=== PATIENT | female | born 1995 | race Caucasian/White ===

== ENCOUNTER 2017-03-20 09:52 | Emergency (ER) | payer BC, OTHER ==
--- NOTE | 2017-03-20 10:23 | ER Document Report ---
ED Respiratory Problem - General Chief Complaint: Cold Symptoms Stated Complaint: FLU-LIKE SYMPTOMS Mode of Arrival: Ambulatory Information source: Patient TRAVEL OUTSIDE OF THE [place] IN LAST 30 DAYS: No - HPI Patient complains to provider of: Cough Onset: Last week Notes: Patient also complains of URI symptoms that started approximately 5 days ago. States she has nasal congestion, cough, sore throat. She states that she feels like her symptoms have gotten worse, she called her primary care physician who did not have appointments today and directed her to the emergency department for evaluation. She has no fever. She denies any chest pain or shortness of breath. She denies any nausea vomiting or diarrhea. No neck stiffness. No rash. She denies any blurred vision. She denies any known medical problems. She didn't taking DayQuil and NyQuil without relief of her symptoms. He has any other complaints at this time. - Related Data Allergies/Adverse Reactions: Penicillins Allergy (Verified 03/20/17 09:58) Past Medical History - Social History Smoking Status: Unknown if Ever Smoked Family History: Reviewed & Not Pertinent Patient has suicidal ideation: No Patient has homicidal ideation: No Renal/ Medical History: Denies: Hx Peritoneal Dialysis Psychiatric Medical History: Reports: Hx Depression Surgical Hx: Negative Review of Systems - Review of Systems -: Yes All other systems reviewed and negative Physical Exam - Vital signs Vitals: Temp Pulse Resp BP Pulse Ox 99.1 F 100 16 148/88 H 100 03/20/17 09:58 03/20/17 09:58 03/20/17 09:58 03/20/17 09:58 03/20/17 09:58 - Notes Notes: GENERAL: alert, cooperative, nontoxic, no distress. HEAD: normocephalic, atraumatic EYES: conjunctiva pink without discharge, no external redness or swelling. EARS: no external swelling, no external redness, no mastoid redness, swelling, tenderness. Ear canals are clear without swelling or drainage. TMs pearly bergeron , no redness, no bulging, normal landmarks, no perforation. NOSE: atraumatic, no external swelling. clear rhinorrhea noted. MOUTH/THROAT: mucous membranes moist and pink, posterior pharynx without erythema, swelling, exudate. No trismus or drooling. NECK: soft, supple, full range of motion, no meningismus. CHEST: no distress, lungs clear and equal throughout. No wheezing, rales, rhonchi. CARDIAC: regular rate and rhythm, no murmur, normal capillary refill, normal pulses. No peripheral edema noted. BACK: full range of motion, no CVA tenderness. EXTREMITIES: full range of motion of all extremities. No redness, no swelling. NEURO: alert and oriented -3, no focal deficits, full range of motion of all extremities. PYSCH: appropriate mood, affect. Patient is cooperative. SKIN: pink, warm, dry, no rash. Course - Re-evaluation Re-evalutation: 03/20/17 11:46 Patient is nontoxic-appearing stable vitals. She's had URI symptoms for less than a week now like she was getting worse. She has a completely benign exam. Strep was negative. Chest x-ray showed no pneumonia. The patient will be discharged home with NSAIDs, Tessalon, Flonase. Follow up with her doctor if not better in one week, sooner for increased pain, difficulty breathing, high fevers, or any further concerns. The patient is noted to have elevated blood pressure during today's emergency department visit. The patient was informed of this finding. The patient was instructed that this may be related to pre-hypertension and requires further evaluation with a primary care provider. The patient has no hypertensive symptoms at this time. The patient's emergency department workup and current diagnosis were explained to the patient and or family. Follow-up instructions were provided. Medications if prescribed were discussed. Instructions for when to return to the emergency department including specific worrisome symptoms were discussed with the patient and/or family. - Vital Signs Vital signs: Temp Pulse Resp BP Pulse Ox 99.1 F 100 16 148/88 H 100 03/20/17 09:58 03/20/17 09:58 03/20/17 09:58 03/20/17 09:58 03/20/17 09:58 Discharge - Discharge Clinical Impression: Upper respiratory infection Qualifiers: URI type: unspecified URI Qualified Code(s): J06.9 - Acute upper respiratory infection, unspecified Condition: Stable Disposition: HOME, SELF-CARE Instructions: Upper Respiratory Illness ([facility]) Additional Instructions: Take medications as prescribed. Drink plenty of fluids. Follow up with your doctor if not better in one week, sooner for difficulty breathing, high fever, or any further concerns. Your blood pressure was elevated during today's visit. Have this rechecked with your doctor. Prescriptions: Benzonatate [Tessalon Perle 100 mg Capsule] 100 mg PO Q8HP PRN #20 cap PRN Reason: Fluticasone Propionate [Flonase Nasal Lignite 50 Mcg/Lignite 16 gm] 2 sprays NASL Q12 #1 inhaler Naproxen 500 mg PO BID #20 tablet Forms: Elevated Blood Pressure
[2017-03-20 12:02] VITALS: BP 111/69
== END 2017-03-20 12:02 | disposition home or self-care (01) ==
LOC: ER 09:52
DX: J06.9 Acute upper respiratory infection, unspecified (principal); R09.81 Nasal congestion; R05 Cough; J02.9 Acute pharyngitis, unspecified; J34.89 Other specified disorders of nose and nasal sinuses; R03.0 Elevated blood-pressure reading, without diagnosis of hypertension; Z88.0 Allergy status to penicillin
CPT/HCPCS: 71020; 87070; 87880; 99283

== ENCOUNTER 2017-06-12 04:41 | Observation (INO) | payer BC, OTHER ==
[2017-06-12] MEDS ORDERED: HYDROCODONE/ACETAMINOPHEN 5-325 MG TABLET PO ONE (07:40)
[2017-06-12 08:20] LABS: APPEARANCE,URINE CLEAR; BILIRUBIN,URINE NEGATIVE (NEGATIVE); GLUCOSE, URINE NEGATIVE (NEGATIVE); KETONES,URINE NEGATIVE (NEGATIVE); LEUKOCYTE ESTERASE,URINE NEGATIVE (NEGATIVE); NITRITE,URINE NEGATIVE (NEGATIVE); PROTEIN,URINE NEGATIVE (NEGATIVE); URINE SPECIFIC GRAVITY 1.018; UROBILINOGEN,URINE NEGATIVE mg/dL (<2.0)
[2017-06-12 08:21] LABS: ABSOLUTE LYMPHOCYTES (AUTO) 0.8 10^3/uL (0.5-4.7); ABSOLUTE MONOCYTES (AUTO) 0.9 10^3/uL (0.1-1.4); ABSOLUTE NEUT (AUTO) 11.9 10^3/uL (1.7-8.2); BASOPHILS % (AUTO) 0.4 % (0-2); EOSINOPHILS % (AUTO) 0.2 % (0-6); HEMATOCRIT 42.3 % (36.0-47.0); HEMOGLOBIN 14.3 g/dL (12.0-15.5); HGB HCT DIFFERENCE 0.6; LYMPHOCYTES % (AUTO) 5.7 % (13-45); MEAN CORPUSCULAR HEMOGLOBIN 30.1 pg (27.0-33.4); MEAN CORPUSCULAR HGB CONC 33.8 g/dL (32.0-36.0); MEAN CORPUSCULAR VOLUME 89 fl (80-97); MONOCYTES % (AUTO) 6.4 % (3-13); RED BLOOD COUNT 4.74 10^6/uL (3.72-5.28); RED CELL DISTRIBUTION WIDTH 12.8 % (11.5-14.0); SEGMENTED NEUTROPHILS % (AUTO) 87.3 % (42-78); WHITE BLOOD COUNT 13.6 10^3/uL (4.0-10.5)
[2017-06-12 08:47] LABS: ALANINE AMINOTRANSFERASE 26 U/L (9-52); ALBUMIN 4.5 g/dL (3.5-5.0); ALKALINE PHOSPHATASE 61 U/L (38-126); ANION GAP 11 (5-19); ASPARTATE AMINO TRANSFERASE 23 U/L (14-36); BILIRUBIN,DIRECT 0.2 mg/dL (0.0-0.4); BILIRUBIN,TOTAL 1.4 mg/dL (0.2-1.3); BLOOD UREA NITROGEN 8 mg/dL (7-20); CALCIUM 9.5 mg/dL (8.4-10.2); CARBON DIOXIDE 26 mmol/L (22-30); CHLORIDE 103 mmol/L (98-107); CREATININE RESULT 0.73 mg/dL (0.52-1.25); GLUCOSE 107 mg/dL (75-110); POTASSIUM 4.2 mmol/L (3.6-5.0); SODIUM 139.9 mmol/L (137-145); TOTAL PROTEIN 7.4 g/dL (6.3-8.2)
--- NOTE | 2017-06-12 09:01 | ER Document Report ---
ED General - General Chief Complaint: Abdominal Pain Stated Complaint: NAUSEA/ABDOMINAL PAIN Time Seen by Provider: 06/12/17 06:09 Mode of Arrival: Ambulatory Information source: Patient Notes: 22-year-old female presents with complaints of left upper quadrant abdominal pain after drinking. Patient denies any fevers or chills nausea vomiting or diarrhea, on palpation patient admits the pain is actually in the right lower quadrant and suprapubic tenderness Patient notes history of ovarian cysts that have ruptured in the past and feels like this TRAVEL OUTSIDE OF THE [place] IN LAST 30 DAYS: No - HPI Onset: Just prior to arrival Onset/Duration: Sudden Quality of pain: Sharp Severity: Mild Pain Level: 1 Associated symptoms: Other Exacerbated by: Denies Relieved by: Denies Similar symptoms previously: Yes - Patient notes she has pain every single night in the epigastric region Recently seen / treated by doctor: Yes - Related Data Allergies/Adverse Reactions: Penicillins Allergy (Verified 03/20/17 09:58) Past Medical History - Social History Smoking Status: Never Smoker Cigarette use (# per day): No Chew tobacco use (# tins/day): No Smoking Education Provided: No Family History: Reviewed & Not Pertinent Patient has suicidal ideation: No Patient has homicidal ideation: No Renal/ Medical History: Denies: Hx Peritoneal Dialysis Psychiatric Medical History: Reports: Hx Depression Review of Systems - Review of Systems Notes: REVIEW OF SYSTEMS: CONSTITUTIONAL : Denies fever, chills, or sweats. Denies recent illness. EENT: Denies eye, ear, throat, or mouth pain or symptoms. Denies nasal or sinus congestion or discharge. Denies throat, tongue, or mouth swelling or difficulty swallowing. CARDIOVASCULAR: Denies chest pain. Denies palpitations or racing or irregular heart beat. Denies ankle edema. RESPIRATORY: Denies cough, cold, or chest congestion. Denies shortness of breath, difficulty breathing, or wheezing. GASTROINTESTINAL: Epigastric tenderness left upper quadrant abdominal pain GENITOURINARY: Denies difficulty urinating, painful urination, burning, frequency, blood in urine, or discharge. FEMALE GENITOURINARY: Denies vaginal bleeding, heavy or abnormal periods, irregular periods. Denies vaginal discharge or odor. MUSCULOSKELETAL: Denies back or neck pain or stiffness. Denies joint pain or swelling. SKIN: Denies rash, lesions or sores. HEMATOLOGIC : Denies easy bruising or bleeding. LYMPHATIC: Denies swollen, enlarged glands. NEUROLOGICAL: Denies confusion or altered mental status. Denies passing out or loss of consciousness. Denies dizziness or lightheadedness. Denies headache. Denies weakness or paralysis or loss of use of either side. Denies problems with gait or speech. Denies sensory loss, numbness, or tingling. Denies seizures. PSYCHIATRIC: Denies anxiety or stress. Denies depression, suicidal ideation, or homicidal ideation. ALL OTHER SYSTEMS REVIEWED AND NEGATIVE. PHYSICAL EXAMINATION: GENERAL: Well-appearing, well-nourished and in no acute distress. HEAD: Atraumatic, normocephalic. EYES: Pupils equal round and reactive to light, extraocular movements intact, conjunctiva are normal. ENT: Nares patent, oropharynx clear without exudates. Moist mucous membranes. NECK: Normal range of motion, supple without lymphadenopathy LUNGS: Breath sounds clear to auscultation bilaterally and equal. No wheezes rales or rhonchi. HEART: Regular rate and rhythm without murmurs ABDOMEN: Soft, tender in the right lower quadrant mild suprapubic tenderness Female : deferred Musculoskeletal: Normal range of motion, no pitting or edema. No cyanosis. NEUROLOGICAL: Cranial nerves grossly intact. Normal speech, normal gait. Normal sensory, motor exams PSYCH: Normal mood, normal affect. SKIN: Warm, Dry, normal turgor, no rashes or lesions noted. Dictation was performed using [employer] voice recognition software Physical Exam - Vital signs Vitals: Temp Pulse Resp BP Pulse Ox 98.1 F 94 18 128/80 H 99 06/12/17 05:07 06/12/17 05:07 06/12/17 05:07 06/12/17 05:07 06/12/17 05:07 Course - Re-evaluation Re-evalutation: 06/12/17 09:00 Overall patient looks well, she is noted to have a mild white count elevation, she is afebrile at this time, ultrasound is pending 06/12/17 13:18 CT is consistent with acute appendicitis,, Dr. Bravo has been notified patient has been n.p.o. will be admitted to his service - Vital Signs Vital signs: Temp Pulse Resp BP Pulse Ox 98.4 F 88 15 112/79 99 06/12/17 10:26 06/12/17 10:26 06/12/17 10:26 06/12/17 10:26 06/12/17 10:26 - Laboratory Result Diagrams: 06/12/17 07:55 06/12/17 07:55 Laboratory results interpreted by me: 06/12/17 06/12/17 06/12/17 07:55 07:55 07:55 WBC 13.6 H Seg Neutrophils % 87.3 H Lymphocytes % 5.7 L Absolute Neutrophils 11.9 H Total Bilirubin 1.4 H Urine Blood MODERATE H - Diagnostic Test Radiology reviewed: Image reviewed, Reports reviewed - Acute appendicitis Discharge - Discharge Clinical Impression: Acute appendicitis Qualifiers: Acute appendicitis type: with localized peritonitis Qualified Code(s): K35.3 - Acute appendicitis with localized peritonitis Leukocytosis Qualifiers: Leukocytosis type: unspecified Qualified Code(s): D72.829 - Elevated white blood cell count, unspecified Condition: Stable Disposition: ADMITTED INPATIENT Admitting Provider: Surgicalist Unit Admitted: Surgical Floor
--- NOTE | 2017-06-12 09:39 | RADIOLOGY REPORT (SQ) ---
EXAM DESCRIPTION: U/S NON OB PEL TV W/DOPPLER COMPLETED DATE/TIME: 06/12/2017 9:12 am REASON FOR STUDY: RLQ pain COMPARISON: 03/11/2015 TECHNIQUE: Dynamic and static grayscale images acquired of the pelvis via transvaginal approach and recorded on PACS. Additional selected color Doppler and spectral images recorded. LIMITATIONS: None. FINDINGS: UTERUS: Contour normal. No mass. ENDOMETRIAL STRIPE: No focal or generalized thickening. No masses. CERVIX: No nabothian cysts. RIGHT OVARY: No abnormal masses. RIGHT OVARY DOPPLER: Normal arterial vascular flow without evidence for torsion. LEFT OVARY: No abnormal masses. LEFT OVARY DOPPLER: Normal arterial vascular flow without evidence for torsion. FREE FLUID: None noted. OTHER: No other significant finding. MEASUREMENTS: UTERUS: 7.1 x 4.0 x 2.9 cm in diameters. ENDOMETRIAL STRIPE: 5 mm RIGHT OVARY: 3.3 x 2.0 x 1.5 cm LEFT OVARY: 2.9 x 2.5 x 1.6 cm IMPRESSION: No significant pelvic abnormalities were identified. Findings as noted above TECHNICAL DOCUMENTATION: JOB ID: [id number]- All Rights Reserved
[2017-06-12] MEDS ORDERED: NORMAL SALINE 1000 ML 1,000 ML IV ONE (10:01)
[2017-06-12] MEDS ORDERED: MORPHINE SULFATE 10 MG/ML INJ IV ONE (10:01)
--- NOTE | 2017-06-12 13:01 | RADIOLOGY REPORT (SQ) ---
EXAM DESCRIPTION: CT ABD/PELVIS WITH IV ORAL COMPLETED DATE/TIME: 06/12/2017 12:39 pm REASON FOR STUDY: RLQ pain HCG negative. COMPARISON: Pelvic ultrasound 06/12/2017. CT abdomen 03/13/2015 TECHNIQUE: CT scan of the abdomen and pelvis performed using helical scanning technique with dynamic intravenous contrast injection. No oral contrast. Images reviewed with lung, soft tissue, and bone windows. Reconstructed coronal and sagittal MPR images reviewed. Delayed images for evaluation of the urinary system also acquired. All images stored on PACS. All CT scanners at this facility use dose modulation, iterative reconstruction, and/or weight based d osing when appropriate to reduce radiation dose to as low as reasonably achievable (ALARA). [facility]: Dose Right [facility]: CareDose [facility]: Dose Right [facility]: Teradose 4D [facility]: French Girls CONTRAST TYPE AND DOSE: contrast/concentration: Isovue 370.00 mg/ml; Total Contrast Delivered: 63.0 ml; Total Saline Delivered: 45.0 ml 63 cc Isovue intravenously RENAL FUNCTION: Creatinine 0.7 RADIATION DOSE: Up-to-date CT equipment and radiation dose reduction techniques were employed. CTDIv ol: 5.0 - 6.0 mGy. DLP: 526 mGy-cm.. LIMITATIONS: None. FINDINGS: LOWER CHEST: No significant findings. No nodules or infiltrates. LIVER: Normal size. No masses. No dilated ducts. SPLEEN: Normal size. No focal lesions. PANCREAS: No masses. No significant calcifications. No adjacent inflammation or peripancreatic fluid collections. Pancreatic duct not dilated. GALLBLADDER: Gallbladder is distended. No obvious calcified stones or pericholecystic fluid. Consid er ultrasound correlation. Correlate clinically for possible cholecystitis. ADRENAL GLANDS: No significant masses or asymmetry. RIGHT KIDNEY AND URETER: No solid masses. No significant calcification. No hydronephrosis or hydroure ter. LEFT KIDNEY AND URETER: No solid masses. No significant calcification. No hydronephrosis or hydrouret er. AORTA AND VESSELS: No AAA. RETROPERITONEUM: No retroperitoneal adenopathy, hemorrhage or masses. BOWEL AND PERITONEAL CAVITY: No masses or inflammatory changes. No free fluid or peritoneal masses. APPENDIX: Prominent slightly dilated appendix 7.8 mm diameter. No surrounding inflammatory change. Correlate clinically, appendicitis a concern. . PELVIS: Distended urinary bladder. 14 cm diameter. No hydroureter. No pelvic mass. There is some fluid within the cul de sac. See recent pelvic ultrasound. ABDOMINAL WALL: No masses. No hernias. BONES: No significant or acute findings. OTHER: No other significant finding. IMPRESSION: Slightly dilated appendix. Correlate clinically for possible appendicitis. Also dilated gallbladder and distended urinary bladder. No hydronephrosis. TECHNICAL DOCUMENTATION: JOB ID: [id number] Quality ID # [id number]: Final reports with documentation of one or more dose reduction techniques (e.g., Au tomated exposure control, adjustment of the mA and/or kV according to patient size, use of iterative reconstruction technique) 2010 [employer]- All Rights Reserved
[2017-06-12] MEDS ORDERED: HYDROMORPHONE HCL INJ/PF 2 MG/ML AMPULE IV PRN (14:13)
[2017-06-12] MEDS ORDERED: ONDANSETRON HCL INJ/PF 4 MG/2 ML SDV IV PRN ×2 (14:13→18:11)
[2017-06-12] MEDS: NORMAL SALINE 1000 ML 1,000 ML IV PRN ×2 (14:22→21:27)
[2017-06-12] MEDS ORDERED: METRONIDAZOLE 500 MG/NS RTU 100 ML IV ONE ×2 (15:00→15:25)
[2017-06-12] MEDS ORDERED: CIPROFLOXACIN 400 MG/D5W RTU 400 MG/200 ML RTUPB IV ONE (15:00)
[2017-06-12] MEDS ORDERED: MIDAZOLAM 2 MG/2 ML INJ ONE (15:25)
[2017-06-12] MEDS ORDERED: FENTANYL CITRATE INJ/PF 250 MCG/5 ML AMPULE ONE (15:25)
[2017-06-12] MEDS ORDERED: PROPOFOL INJ 200 MG/20 ML VIAL IV ONE (15:26)
[2017-06-12] MEDS ORDERED: ACETAMINOPHEN 100 ML IV ONE (15:26)
[2017-06-12] MEDS ORDERED: BUPIVACAINE HCL 0.25 % INJ/PF (2.5 MG/1 ML) 30 ML VIAL ONE (15:34)
[2017-06-12] MEDS ORDERED: KETOROLAC TROMETHAMINE 60 MG/2 ML SDV ONE (16:02)
[2017-06-12] MEDS ORDERED: ONDANSETRON HCL INJ/PF 4 MG/2 ML SDV ONE (16:02)
[2017-06-12] MEDS ORDERED: SUCCINYLCHOLINE CHLORIDE INJ 200 MG/10 ML VIAL ONE (16:02)
[2017-06-12] MEDS ORDERED: DEXAMETHASONE SOD PHOSPHATE INJ 4 MG/1 ML VIAL ONE (16:02)
[2017-06-12] MEDS ORDERED: MEPERIDINE HCL/PF INJ 25 MG/1 ML DISP.SYRIN IV PRN (16:14)
[2017-06-12] MEDS ORDERED: DIPHENHYDRAMINE HCL 50 MG/ML VIAL IV PRN (16:14)
[2017-06-12] MEDS ORDERED: OXYCODONE-ACETAMINOPHEN 5-325 MG TABLET PO PRN ×3 (16:14→17:46)
[2017-06-12] MEDS ORDERED: FENTANYL CITRATE INJ/PF 100 MCG/2 ML AMPUL IV PRN ×3 (16:14)
[2017-06-12] MEDS ORDERED: PROMETHAZINE HCL INJ 25 MG/1 ML VIAL IV PRN ×2 (16:14)
[2017-06-12] MEDS ORDERED: MORPHINE SULFATE 10 MG/ML INJ IV PRN (16:14)
[2017-06-12] MEDS ORDERED: ALPRAZOLAM 0.5 MG TABLET PO PRN ×2 (17:46→17:48)
--- NOTE | 2017-06-12 18:23 | OPERATIVE REPORT E ---
Operative Report NAME: MIGUEL GARCIA : 1995 AGE: 22Y DATE OF SURGERY: ROOM: ED04 PREOPERATIVE DIAGNOSIS: ACUTE APPENDICITIS. POSTOPERATIVE DIAGNOSIS: ACUTE APPENDICITIS. OPERATION: Laparoscopic appendectomy. SURGEON: NICO CURRIE M.D. ANESTHESIA: General. INDICATION: This is a 22-year-old female who complained of right lower quadrant pain that started yesterday. She had a CAT scan of the abdomen which showed dilated appendix, compatible with acute appendicitis. PROCEDURE: After adequate general anesthesia, the patient was placed in the supine position and the abdomen prepped and draped in the usual sterile fashion. An appropriate timeout was then performed. Next, an infraumbilical elliptical incision was made and the fascia identified and grasped on both sides and the fascia divided in between the Dimple clamps. The abdominal cavity was entered and a Twin trocar inserted into the abdominal cavity and CO2 insufflated to a pressure of 15 mmHg. Next, the camera was then inserted and 2 other trocars were placed under direct vision, a 5 mm in the suprapubic area and a 12 mm in the left lower quadrant. Next, the appendix was then identified and subsequently grasped with a [place]. The appendix was noted to be slightly inflamed. The base of the appendix was then dissected and subsequently, the mesoappendix was cauterized and divided with the Harmonic alysia. The neck of the appendix was subsequently stapled with a 45-mm Endo CESAR. The specimen was then placed in an Endobag and removed through the umbilical port. Next, the appendiceal stump was inspected and noted to reveal oozing. This was controlled with a couple of Hemoclips. Further irrigation of the area was performed and no evidence of any other bleeding. The ovaries were inspected and noted to be normal though the right side may have a little cyst. Both fallopian tubes were normal. No other gross abnormality noted in the abdominal cavity on inspection. Next, all of the trocars were then removed and CO2 allowed to come out through the trocar sites. The fascial defect in the infraumbilical area was then closed with a [id number] suture using 0 Vicryl and the left lower quadrant fascial defect was closed with a simple 0 Vicryl stitch. All of the skin incisions were then closed with running subcuticular 4-0 Vicryl undyed. Marcaine was then injected at the fascial area of the left lower quadrant and the infraumbilical incision sites. Next, all of the incisions were then dressed with skin glue. The patient tolerated the procedure well. Needle, instrument and sponge counts were all correct and estimated blood loss was about 15 mL. The patient was then brought to the recovery room in satisfactory condition. DICTATING PHYSICIAN: NICO CURRIE M.D. [id number] PHY#: [id number] ID: [id number] JOB#: [id number] ACCT: [id number] cc:NICO CURRIE M.D. >
[2017-06-12] MEDS: METRONIDAZOLE 500 MG/NS RTU 100 ML IV SCH (21:22)
[2017-06-12] MEDS ORDERED: CIPROFLOXACIN 400 MG/D5W RTU 400 MG/200 ML RTUPB IV SCH (22:00)
[2017-06-12] MEDS ORDERED: SERTRALINE HCL 50 MG TABLET PO SCH (22:00)
[2017-06-12] MEDS ORDERED: (PENDING PHARMACY ID) (Melatonin [Melatonin] 5 MG) PO SCH (22:00)
[2017-06-12] MEDS: HYDROMORPHONE HCL INJ/PF 2 MG/ML AMPULE IV PRN (22:20)
[2017-06-13] MEDS: HYDROMORPHONE HCL INJ/PF 2 MG/ML AMPULE IV PRN ×2 (03:20→09:18)
[2017-06-13] MEDS: METRONIDAZOLE 500 MG/NS RTU 100 ML IV SCH (05:22)
[2017-06-13] MEDS: OXYCODONE-ACETAMINOPHEN 5-325 MG TABLET PO PRN ×2 (07:24→14:25)
[2017-06-13 14:29] VITALS: BP 112/79
--- NOTE | 2017-06-19 17:29 | DISCHARGE SUMMARY E ---
Discharge Summary NAME: MIGUEL GARCIA : 1995 AGE: 22Y ADMITTED: 06/12/2017 DISCHARGED: 06/13/2017 FINAL DIAGNOSIS: Acute appendicitis. PROCEDURE DONE: Laparoscopic appendectomy. SUMMARY: This is a 22-year-old female admitted for acute appendicitis. CAT scan revealed a large appendix and white count elevated to 13.6. She was tender in the right lower quadrant. She then underwent laparoscopic appendectomy on the day of admission and discharged improved on 06/13/17 with the above final diagnosis. Patient able to tolerated soft diet. Advised not to do any lifting more than 10 pounds for the next week until seen in the office [facility]. Patient was given a Percocet p.r.n. for pain. DICTATING PHYSICIAN: NICO CURRIE M.D. [id number] PHY#: [id number] ID: [id number] JOB#: [id number] ACCT: [id number] cc:NICO CURRIE M.D. >
== END 2017-06-13 14:40 | disposition home or self-care (01) ==
LOC: ER 04:41 → EH 13:38 → INTOOBSV 13:38 → 2N 18:28
PROVIDERS: ADMIT Surgery; ATTEND Surgery
PROC: 0DTJ4ZZ Resection of Appendix, Percutaneous Endoscopic Approach (ICD-10-PCS; principal; 2017-06-12 15:00)
DX: K35.3 Acute appendicitis with localized peritonitis (principal); Z87.42 Personal history of other diseases of the female genital tract
CPT/HCPCS: 44970; 99285; 96361; 96374; 36415; 83690; 85025; 81025; 80053; 81001; 88304 ×2; 76830; 93976; 74177; J2250; J1100; J1885; J3010; J2270; J1170 ×2; J0330; J2405; J7030; J2704; J0744; J0131; 840; G0378